=== PATIENT | male | born 1980 | race Caucasian/White ===

== ENCOUNTER 2020-02-01 14:33 | Outpatient (CLI) | payer OTHER, SELFPAY ==
--- NOTE | 2020-02-01 14:34 | ECG_ITS ---
Measurements Intervals [place] Rate: 82 P: 44 [place]: 154 QRS: -6 QRSD: 120 T: 32 QT: 375 QTc: 441 Interpretive Statements SINUS RHYTHM INTRAVENTRICULAR CONDUCTION DELAY BORDERLINE R WAVE PROGRESSION, ANTERIOR LEADS BASELINE ARTIFACT- I, II, III, AVR, AVL, AVF BORDERLINE ECG Electronically Signed On 02-01-2020 15:24:52 CDT by Allen Kwok D.O.
== END 2020-02-01 14:34 | disposition home or self-care (01) ==
LOC: ANHSURGERY 14:34
PROVIDERS: PCP Emergency Medicine; Visit Provider Urology
DX: N50.89 Other specified disorders of the male genital organs (principal); I10 Essential (primary) hypertension; R94.31 Abnormal electrocardiogram [ECG] [EKG]; I45.9 Conduction disorder, unspecified
CPT/HCPCS: 87086; 93005

== ENCOUNTER 2020-02-08 00:36 | Outpatient (CLI) | payer OTHER, SELFPAY ==
[2020-02-08 17:34] LABS: SARS-CoV-2 RNA PCR Negative
== END 2020-02-08 00:37 | disposition home or self-care (01) ==
LOC: ANHCOVIDDT 00:36
PROVIDERS: PCP Emergency Medicine; Visit Provider Urology
DX: Z01.812 Encounter for preprocedural laboratory examination (principal); Z11.59 Encounter for screening for other viral diseases
CPT/HCPCS: 87635; C9803; U0003

== ENCOUNTER 2020-02-10 02:27 | Day surgery (SDC) | payer OTHER, SELFPAY ==
[2020-01-31 09:33] VITALS: BMI 40.6
[2020-02-10] VITALS (12 sets, daily range): BP systolic 134–188; BP diastolic 11–110; PULSE 75–89; RESP 14–20; TEMP 36.8–37; O2SAT 77–97
[2020-02-10] MEDS: LACTATED RINGERS 1,000 ML 30 ML IV CONT ×2 (06:40→09:57)
--- NOTE | 2020-02-10 06:42 | P.PNAN_ITS ---
Anes - Initial Pre Proc Eval Procedure: Operation Date: 02/10/20 07:30 Proposed Procedures p Right Orchiectomy, Inguinal Approach - Irving Powers MD Date/Time: 02/10/20 06:42 Surgeon: Irving Powers MD Pre Op Diagnosis: Right Testicular Mass Patient Data Age: 39 Gender: M Height: 1.83 m Weight: 132.5 kg Allergies Allergy/AdvReac Type Severity Reaction Status Date / Time codeine AdvReac Mild Gastrointestinal Verified 02/10/20 06:32 Upset Home Medications Medication Instructions Recorded Confirmed Type allopurinol 200 mg PO DAILY 01/31/20 02/10/20 History bupropion HCl 150 mg PO DAILY 01/31/20 02/10/20 History indomethacin 50 mg PO DIRECTED PRN 01/31/20 01/31/20 History irbesartan 75 mg PO DAILY 01/31/20 02/10/20 History ECG: Date of Service: 02/01/20 Procedure(s): CA 12 lead EKG Accession Number(s): [id number] cc: ~ Measurements Intervals [place] Rate: 82 P: 44 [place]: 154 QRS: -6 QRSD: 120 T: 32 QT: 375 QTc: 441 Interpretive Statements SINUS RHYTHM INTRAVENTRICULAR CONDUCTION DELAY BORDERLINE R WAVE PROGRESSION, ANTERIOR LEADS BASELINE ARTIFACT- I, II, III, AVR, AVL, AVF BORDERLINE ECG Electronically Signed On 02-01-2020 15:24:52 CDT by Allen Kwok D.O. Dictated By: Allen Kwok DO 02/01/20 1519 Patient hx anesthesia problems: none Family hx anesthesia problems: none [facility] Past Medical History Medical History (Updated 02/10/20 @ 06:44 by Eze Arriola MD) Gout HTN (hypertension) Mass of right testicle Obesity MANNY (obstructive sleep apnea) Anes - Eval Final PreProcedure Day of Procedure 02/10/20 06:42 Patient weight: obese Heart: regular rate and rhythm Lungs: clear to auscultation and normal air movement Airway: Mallampati scale class II Neurological: alert and oriented Last oral intake: >/= 8 hours ASA classification: III Emergent: no Anesthetic plan: proceed Anesthesia type and monitoring: general LMA and ETT Informed Consent: The patient's anesthetic plan and its attendant risks and benefits were discussed with the patient/family/POA. Questions were solicited and answers provided to the satisfaction of the patient/family/POA.
--- NOTE | 2020-02-10 07:17 | PM.HPGS ---
History of Present Illness History of Present Illness Consent: Risks, benefits, and alternatives have been discussed and questions answered. Patient agrees to proceed with procedure. Chief complaint: Right Testicular Mass Narrative: David Villegas is a 39 year old male found to have a right testis mass. Presents for orchiectomy. Negative CT abd/pelvis CT and tumor markes Review of Systems Constitutional: Constitutional: Reports no additional constitutional complaints Eyes: Eyes: Reports no additional eye complaints Respiratory: Respiratory: Reports no additional respiratory complaints Musculoskeletal: Musculoskeletal: Reports no additional musculoskeletal complaints Integumentary/Breasts: Skin/Breast: Reports system reviewed and no additional complaints, except as docu Neurologic: Reports system reviewed and no additional complaints, except as documented Psychiatric: Psychiatric: Reports no additional psychiatric complaints [facility] Past Medical History Medical History (Updated 02/10/20 @ 06:44 by Eze Arriola MD) Gout HTN (hypertension) Mass of right testicle Obesity MANNY (obstructive sleep apnea) Meds Home Medications and Allergies Home Medications Medication Instructions Recorded Confirmed Type allopurinol 200 mg PO DAILY 01/31/20 02/10/20 History bupropion HCl 150 mg PO DAILY 01/31/20 02/10/20 History indomethacin 50 mg PO DIRECTED PRN 01/31/20 01/31/20 History irbesartan 75 mg PO DAILY 01/31/20 02/10/20 History Allergies Allergy/AdvReac Type Severity Reaction Status Date / Time codeine AdvReac Mild Gastrointestinal Verified 02/10/20 06:32 Upset Vital Signs Vital Signs - 24 hr 02/10/20 07:05 Temperature 36.8 C Pulse Rate 75 Respiratory Rate 16 Blood Pressure 142/83 H Pulse Oximetry 97 Exam Const: General: no acute distress Eyes: General: appearance normal, both eyes and all related structures Resp: Auscultation: clear to auscultation bilaterally Cardio: Rate: regular rate GI: GI Palp: Yes Soft to palpation : Other: right testis is smaller/firmer than left Skin: General skin exam: normal color Extrem: General: normal to inspection Assessment and Plan Assessment and plan (1) Mass of right testicle: Code(s): N50.89 - Other specified disorders of the male genital organs Status: Acute Assessment and Plan: Right testis atrophy with US showing mass - Plan right inguinal orchiectomy. Risks, benefits and alternatives discussed. - Pt agrees to proceed.
[2020-02-10] MEDS: ceFAZolin 3 GM/D5W 100 ML 100 ML IVPB (07:26)
[2020-02-10] MEDS: hydrALAZINE HCL 20 MG/ML VIAL 10 MG IV PUSH ×2 (09:41→10:04)
--- NOTE | 2020-02-10 13:02 | OP_ITS ---
DATE OF PROCEDURE: 02/10/2020 PREOPERATIVE DIAGNOSIS: Right testicular lesion. POSTOPERATIVE DIAGNOSIS: Right testicular lesion. PROCEDURE PERFORMED: Right inguinal orchiectomy. INDICATION FOR PROCEDURE: The patient is a pleasant gentleman who presented for individually workup. He was found to have a mass on scrotal ultrasonography. The patient reports atrophy of his right testicle. The risks, benefits, and alternatives were discussed with the patient. The patient has agreed to proceed with the right inguinal orchiectomy today. He has declined a testicular prosthesis. The patient has done preoperative sperm banking. The patient understands the risk of procedure including, not limited to infection, bleeding, pain, injury to surrounding structures, injury to the nerve endings, need for additional operations, potential benign etiology of lesion, and complication of anesthetic. The patient understands he may need additional therapies including chemotherapy, radiation therapy, or additional surgeries for treatment if cancer is found. The patient understands, has no questions, agrees to proceed. DESCRIPTION OF PROCEDURE: Informed consent was obtained. The patient was taken to the operating room, given preoperative IV antibiotics. He was induced with anesthesia. He was shaved, prepped and draped in normal sterile fashion. An 8 cm right lower abdominal incision was made approximately 2 cm above the external ring. We dissected down to identify the spermatic cord at the external ring. It was encompassed with a Barrie drain. We then delivered the right testicle atrophic without notable mass. We carefully dissected off the gubernacular attachments. We then opened the fascia taking care not to injure the ilioinguinal nerve. We then the spermatic cord away from surrounding structures up to the internal ring. Pean clamps were placed. We then tied the cord with multiple 0 Vicryl suture ligatures. It was hemostatic. We left the most distal suture long for further identification if needed in the future. The cord remnant was allowed to retract into the internal ring. We then irrigated copiously. We closed the fascia with interrupted 0 Vicryl sutures. Lucho's was then closed with a 2-0 Vicryl, deep dermal with 3-0 Vicryl, and skin with a 4-0 Monocryl subcuticular closure. The surgical glue was applied. Scrotal support was placed. The patient was awakened, taken to recovery room in stable condition. IV FLUIDS: Per Anesthesia. COMPLICATIONS: None. ESTIMATED BLOOD LOSS: Minimal. FOLLOWUP: The patient will follow up in the office in 2 to 3 weeks. I will call him with pathology, follow him on his return. D I MT: Jareth
== END 2020-02-10 12:10 | disposition home or self-care (01) ==
PROVIDERS: PCP Emergency Medicine; Visit Provider Urology
PROC: (CPT 54520; principal; 2020-02-10 07:30)
DX: C62.91 Malignant neoplasm of right testis, unspecified whether descended or undescended (principal); N50.0 Atrophy of testis; I10 Essential (primary) hypertension; G47.33 Obstructive sleep apnea (adult) (pediatric); E66.9 Obesity, unspecified; Z68.39 Body mass index [BMI] 39.0-39.9, adult; M10.9 Gout, unspecified; Z79.899 Other long term (current) drug therapy; Z88.5 Allergy status to narcotic agent
CPT/HCPCS: 54520; 88305; 88309; A9270; J0131; J0360; J0690; J1100; J1170; J2250; J2405; J2704; J3010; J7120

== ENCOUNTER 2020-07-20 08:35 | Outpatient (CLI) | payer OTHER, SELFPAY ==
--- NOTE | ~2020-07-20 | MR_ITS ---
EXAMINATION: MR MRCP wo/w con/w 3D wo ind DATE: 07/20/2020 10:13 INDICATION: Dilated common bile duct. TECHNIQUE: Magnetic resonance imaging (MRI) of the abdomen was performed without and with 20 mL Multi Emerald intravenous contrast. Sequences included coronal T2-weighted FS FSE, coronal T2-weighted FSE, a xial T1-weighted LAVA, coronal FS FIESTA, axial dual-echo T1-weighted SPGR, coronal lava-FLEX, sagitt al T2-weighted FSE, axial T2-weighted FSE, and axial DWI. Thick-slab T2-weighted FSE images were obta ined for magnetic resonance cholangiopancreatography (MRCP). Maximum intensity projection 3-D reconst ructions of the volumetric data were created by the technologist. Postcontrast sequences included cor onal LAVA-flex and time course of axial T1-weighted LAVA. COMPARISON: None. FINDINGS: ABDOMEN MRI: There is diffuse hepatic steatosis. There is a 15 mm mass with delayed hyperenhancement in right hepatic lobe without washout. The gallbladder, spleen, pancreas, and right adrenal gland are normal. There is a 13 mm mass in left adrenal gland containing microscopic fat, consistent with an a denoma. There are cysts in the kidneys measuring up to 5 mm on the right. There are no dilated loops of bowel. There are no pathologically enlarged lymph nodes. There is no free intraperitoneal fluid. ABDOMEN MRCP: The common duct is normal and measures 4 mm. No choledocholithiasis. IMPRESSION: 1. Normal biliary tree. 2. Diffuse hepatic steatosis. 3. 15 mm hyperenhancing liver mass, most likely a hemangioma. Reviewed, dictated and finalized at location A. [employer]
[2020-07-20 09:28] LABS: Estimated Glomerular Filt Rate > 60
== END 2020-07-20 08:36 | disposition home or self-care (01) ==
PROVIDERS: PCP Emergency Medicine; Visit Provider Emergency Medicine
DX: K83.8 Other specified diseases of biliary tract (principal); K76.0 Fatty (change of) liver, not elsewhere classified; R16.0 Hepatomegaly, not elsewhere classified; N28.1 Cyst of kidney, acquired
CPT/HCPCS: 74183; 76376; A9577

== ENCOUNTER 2020-07-28 16:45 | Emergency (ER) | payer OTHER, SELFPAY ==
[2020-07-28 16:51] VITALS: BP 142/89; PULSE 108; RESP 20; TEMP 36.3; O2SAT 99
--- NOTE | 2020-07-28 17:00 | ED.DENTAL ---
HPI - Dental/Oral General Chief complaint: Dental/Oral Stated complaint: jaw pain Source: patient and RN notes reviewed Limitations: no limitations History of Present Illness HPI Narrative: The patient, occasional drinker/chews tobacco, presents with left jaw pain. Patient states his dentist retired and he has 1/2-week history of left lower jaw pain that is mild, worse with palpation, radiates upward to his TMJ. No TMJ tenderness, fever, hoarseness, discharge, trismus, earache, discharge, visible/significant swelling. Patient advised to enroll and see dentist in follow-up Related Data Home Medications Medication Instructions Recorded Confirmed allopurinol 200 mg PO DAILY 01/31/20 02/10/20 bupropion HCl 150 mg PO DAILY 01/31/20 02/10/20 indomethacin 50 mg PO DIRECTED PRN 01/31/20 01/31/20 irbesartan 75 mg PO DAILY 01/31/20 02/10/20 clomiphene citrate mg 07/28/20 metformin 07/28/20 testosterone 07/28/20 Allergies Allergy/AdvReac Type Severity Reaction Status Date / Time codeine AdvReac Mild Gastrointestinal Verified 02/10/20 06:32 Upset Review of Systems Review of Systems: Narrative: The patient has been informed that they may have pre-hypertension or Hypertension based on a BP reading in the department. I recommend that the patient call the primary care provider listed on their discharge instructions or a physician of their choice this week to arrange follow up for further evaluation of possible pre-hypertension or Hypertension General/Constitutional: No weight loss,fever Eyes: N0: Redness,discharge Ears/Nose/Throat: No: Epistaxis,ear discharge Respiratory: Denies: Hemoptysis Gastrointestinal: No Vomiting, Bleeding-rectal Skin: No Lumps, eruption Neurologic: No Focal Weakness,Sz Hematologic: Denies: Petechiae/Purpura Psychiatric: No: Suicida ideationl All Other Systems: Reviewed and Negative [facility] Past Medical History Medical History (Updated 07/28/20 @ 17:46 by Brennen Ramos MD) Gout HTN (hypertension) Mass of right testicle Obesity MANNY (obstructive sleep apnea) Comments At time of signature, agree with nursing past medical, surgical, social and family history. There is no relevant family history pertinent to the presenting complaint Exam Narrative: Exam Narrative: General Appearance: Obese, Conjunctiva clear Nose: Normal nose Mouth/Throat: Normal appearing without left lower jaw swelling, Normal lips, MM moist, Uvula midline,scattered dental caries and fillings,, with rare fracture Neck: Supple, No adenopathy Respiratory: Airway patent, No respiratory distress Musculoskeletal: Full ROM, Non tender, Normal strength Spine/Back: Normal ROM Skin: Warm, Dry, Normal color Neurological: A&O x3, Normal affect Course Vital Signs Vital signs: Vital Signs Temperature 97.3 F L 07/28/20 16:51 Pulse Rate 108 H 07/28/20 16:51 Respiratory Rate 07/28/20 16:51 Blood Pressure 142/89 H 07/28/20 16:51 Pulse Oximetry 99 07/28/20 16:51 Temperature 97.3 F L 07/28/20 16:51 Pulse Rate 108 H 07/28/20 16:51 Respiratory Rate 07/28/20 16:51 Blood Pressure 142/89 H 07/28/20 16:51 Pulse Oximetry 99 07/28/20 16:51 Discharge Plan Discharge Clinical Impression: Abscess of jaw, left, Toothache Patient Disposition: Home, Self-Care Condition: Stable Instructions: Antibiotic Form, Dental Abscess (ED) Prescriptions: New amoxicillin-pot clavulanate [Augmentin] 500-125 mg tablet 1 tablet PO Q12H Qty: 14 RF: 0 Lidocaine Viscous 2 % solution 5 ml MUCOUS MEM QID PRN (Reason: pain) Qty: 100 RF: 0 indomethacin 50 mg capsule 50 mg PO BID Qty: 20 RF: 2 tramadol 50 mg tablet 50 mg PO TID PRN (Reason: pain) Qty: 15 RF: 1 No Action clomiphene citrate 50 mg tablet RF: 0 metformin RF: 0 testosterone RF: 0 bupropion HCl 150 mg tablet sustained-release 12 hr 150 mg PO DAILY RF:
== END 2020-07-28 17:19 | disposition home or self-care (01) ==
PROVIDERS: Emergency Provider Emergency Medicine; PCP Emergency Medicine
DX: M27.2 Inflammatory conditions of jaws (principal); K08.89 Other specified disorders of teeth and supporting structures; M10.9 Gout, unspecified; I10 Essential (primary) hypertension; G47.33 Obstructive sleep apnea (adult) (pediatric); E66.9 Obesity, unspecified; Z68.41 Body mass index [BMI] 40.0-44.9, adult
CPT/HCPCS: 99213; G0463

== ENCOUNTER 2020-08-12 11:17 | Emergency (ER) | payer OTHER, SELFPAY ==
--- NOTE | ~2020-08-12 | XR_ITS ---
EXAMINATION: XR knee RT min 4V EXAM DATE: 08/12/2020 11:59 INDICATION: right knee pain no injury . TECHNIQUE: Right knee lateral, frontal AP, frontal PA tunnel, sunrise projections. There is no prior study for comparison. FINDINGS: No evidence osteochondral defect or joint body in the right knee joint. No joint effusion. There is mild patellofemoral compartment primary osteoarthritis. There are no acute fractures or dis locations identified. There is no subcutaneous gas. The soft tissue is unremarkable. There are no radiopaque foreign bodies. IMPRESSION: Mild right patellofemoral compartment osteoarthritis. Reviewed, dictated and finalized at location A. 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
[2020-08-12 11:26] VITALS: BP 162/103; PULSE 94; RESP 16; TEMP 36.2; O2SAT 99
--- NOTE | 2020-08-12 11:37 | ED.EXTPRO ---
HPI - Extremity Problem General Chief complaint: Extremity Problem,Nontraumatic Stated complaint: Knee Pain Source: patient Mode of arrival: ambulatory Limitations: no limitations History of Present Illness HPI Narrative: Patient is a 40-year-old male who presents complaining of right knee pain x2 weeks. He reports initially had bilateral knee pain, however took indomethacin and left knee has no pain at this time. He reports history of gout. He denies injury on knees. He denies all other complaints. He reports taking ibuprofen last p.m. with moderate relief. MD Complaint: joint paint Related Data Home Medications Medication Instructions Recorded Confirmed allopurinol 200 mg PO DAILY 01/31/20 02/10/20 bupropion HCl 150 mg PO DAILY 01/31/20 02/10/20 indomethacin 50 mg PO DIRECTED PRN 01/31/20 01/31/20 irbesartan 75 mg PO DAILY 01/31/20 02/10/20 clomiphene citrate mg 07/28/20 metformin 07/28/20 testosterone 07/28/20 Allergies Allergy/AdvReac Type Severity Reaction Status Date / Time codeine AdvReac Mild Gastrointestinal Verified 02/10/20 06:32 Upset Review of Systems Review of Systems: Narrative: CONSTITUTIONAL: Denies fever, chills, or sweats. EYES: Denies visual changes, redness, or discharge. ENT: Denies rhinorrhea, congestion, sore throat, or otalgia. CARDIOVASCULAR: Denies chest pain, palpitations, or edema. RESPIRATORY: Denies cough or dyspnea. GASTROINTESTINAL: Denies abdominal pain, nausea, vomiting, or diarrhea. GENITOURINARY: Denies dysuria or hematuria. SKIN: Denies rash or itching. MUSCULOSKELETAL: Right knee pain NEUROLOGIC: Denies headache, numbness, dizziness, or weakness. PSYCHIATRIC: Denies anxiety or depression. [facility] Past Medical History Medical History (Updated 08/12/20 @ 12:18 by KAI Villavicencio) Gout HTN (hypertension) Mass of right testicle Obesity MANNY (obstructive sleep apnea) Surgical History Surgical History (Updated 08/12/20 @ 11:47 by KAI Villavicencio) No significant past surgical history Family History Family History (Updated 08/12/20 @ 11:48 by KAI Villavicencio) Other No significant family history Social History Social History (Updated 08/12/20 @ 11:48 by KAI Villavicencio) Smoking status: Never smoker Alcohol intake: current Alcohol use details: Occasional Substance use: never Living arrangements: with family Exam Narrative: Exam Narrative: GENERAL: Well-appearing, well-nourished, and in no acute distress. HEAD: Normocephalic, atraumatic. EYES: EOMI. No redness or drainage. ENT: Mucous membranes pink and moist. CHEST: No respiratory distress. Clear to auscultation. HEART: Regular rate and rhythm. No murmur appreciated. Normal peripheral pulses. EXTREMITIES: Right knee:normal range of motion, no edema, erythema or warmth. Good pedal pulse, capillary refill intact. SKIN: Warm, dry, no rash. NEURO: No focal deficits. Alert and oriented x3. Gait steady. PSYCH: Normal affect. No signs of depression or anxiety. Course Vital Signs Vital signs: Vital Signs Temperature 36.2 C L 08/12/20 11:26 Pulse Rate 94 08/12/20 11:26 Respiratory Rate 16 08/12/20 11:26 Blood Pressure 162/103 H 08/12/20 11:26 Pulse Oximetry 99 08/12/20 11:26 Temperature 36.2 C L 08/12/20 11:26 Pulse Rate 94 08/12/20 11:26 Respiratory Rate 16 08/12/20 11:26 Blood Pressure 162/103 H 08/12/20 11:26 Pulse Oximetry 99 08/12/20 11:26 Reviewed. Patient has been instructed to follow-up with his PCP regarding his blood pressure. History of medication noncompliance. MDM - Extremity (Nontraumatic) MDM Narrative Medical decision making narrative: Patient's right knee shows some mild osteoarthritis. Discussed pain relief with patient and follow-up with orthopedics as needed. Patient is stable for discharge home with outpatient follow-up as discussed. Differential Diagnosis Differential diagnosis: Likely gout a
== END 2020-08-12 12:21 | disposition home or self-care (01) ==
PROVIDERS: Emergency Provider Nurse Practitioner; PCP Emergency Medicine
DX: M17.11 Unilateral primary osteoarthritis, right knee (principal); M10.9 Gout, unspecified; I10 Essential (primary) hypertension; G47.33 Obstructive sleep apnea (adult) (pediatric); E66.9 Obesity, unspecified; Z68.41 Body mass index [BMI] 40.0-44.9, adult
CPT/HCPCS: 73564; 99213; G0463

== ENCOUNTER 2022-01-27 13:00 | Outpatient (RCR) | payer OTHER, SELFPAY | END 2022-02-03 11:05 | disposition home or self-care (01) | LOC: ANHDMC 13:00 | PROVIDERS: PCP Emergency Medicine; Referring Provider Emergency Medicine; Visit Provider Emergency Medicine | DX: E11.9 Type 2 diabetes mellitus without complications (principal); Z71.89 Other specified counseling | CPT/HCPCS: G0108 ==

== ENCOUNTER 2023-09-07 08:19 | Emergency (ER) | payer OTHER, SELFPAY ==
--- NOTE | ~2023-09-07 | XR_ITS ---
XR ankle RT min 3V 09/07/2023 08:41 Indication: Right ankle pain Procedure: 4 views right ankle Comparison: 04/09/2019 Findings: There is an oblique displaced distal fibular fracture. There is widening of the medial ankl e mortise. There is a prominent degenerative calcaneal enthesophyte at the plantar surface. There is moderate lateral soft tissue swelling. Impression: 1: Oblique displaced distal fibular fracture. Widening of the medial ankle mortise. Reviewed, dictated and finalized at location B. 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 Widening of the medial ankle mort ise.
[2023-09-07 08:19] VITALS: BP 176/109; PULSE 62; RESP 18; TEMP 36.4; O2SAT 98
[2023-09-07 08:24] VITALS: BP 176/109; PULSE 62; RESP 18; TEMP 36.4; O2SAT 98
--- NOTE | 2023-09-07 08:51 | ED.LOWEXIN ---
HPI - Extremity Injury (Lower) General Chief Complaint: Extremity Injury, Lower Stated Complaint: slipped on ice, right ankle pain Time Seen by Provider: 09/07/23 08:48 Source: patient Mode of arrival: ambulatory Limitations: no limitations History of Present Illness HPI Narrative: David is a 43-year-old male patient presenting to the ER today for complaints of right ankle pain after slipping on the ice at around 7:25 a.m. this morning. He reports pain is all way around the ankle. He is able to flex and extend the ankle with moderate pain. Related Data Home Medications Medication Instructions Recorded Confirmed allopurinol 100 mg tablet 200 mg PO DAILY 01/31/20 08/29/20 bupropion HCl 150 mg tablet,12 hr 150 mg PO DAILY 01/31/20 08/29/20 sustained-release indomethacin 50 mg capsule 50 mg PO DIRECTED PRN Pain 01/31/20 08/29/20 irbesartan 75 mg tablet 75 mg PO DAILY 01/31/20 08/29/20 clomiphene citrate 50 mg tablet mg 07/28/20 08/29/20 metformin 07/28/20 08/29/20 testosterone 07/28/20 08/29/20 Allergies Allergy/AdvReac Type Severity Reaction Status Date / Time iohexol Allergy Flushing Verified 09/07/23 08:23 [From contrast - CT, X-RAY] codeine AdvReac Mild Gastrointestinal Verified 09/07/23 08:23 Upset Review of Systems Review of Systems: Pertinent positives per HPI. Patient denies any fever, chills, rash, headache, visual changes, dizziness, cough, runny nose, sore throat, shortness of breath, chest pain, palpitations, nausea, vomiting, diarrhea, constipation, abdominal pain, or any urinary issues. [facility] Past Medical History Medical History Gout HTN (hypertension) Mass of right testicle Obesity MANNY (obstructive sleep apnea) Patella, chondromalacia Surgical History Surgical History History of orchiectomy Lt No significant past surgical history Family History Family History Other No significant family history Social History Social History Smoking status: Never smoker Alcohol intake: current Alcohol use details: Occasional Substance use: never Living arrangements: with family Comments At the time of my signature, I reviewed and agree with the nursing past medical, surgical, social, and family history. There is no relevant family history pertinent to the patient complaint. Exam Narrative: General: Well-developed, obese, in no apparent distress Head: Normocephalic, atraumatic. Cardio: Regular rate and rhythm, s1 and s2 normal, no murmur appreciated. Resp: Clear to auscultation bilaterally, no rhonchi, rales, wheezing or rubs. Musculoskeletal: No deformity, tender to palpation over the entire ankle joint, mild pain with flexion and extension against resistance, pain with valgus and varus testing, muscle strength strong and equal, peripheral pulse strong, moderate swelling, no cyanosis. Course Course Emergency Course: Portions of this record may have been created with voice recognition software. Vital Signs Vital signs: Vital Signs Temperature 36.4 C 09/07/23 08:19 Pulse Rate 62 09/07/23 08:19 Respiratory Rate 18 09/07/23 08:19 Blood Pressure 176/109 H 09/07/23 08:19 Pulse Oximetry 98 09/07/23 08:19 Temperature 36.4 C 09/07/23 08:24 Pulse Rate 62 09/07/23 08:24 Respiratory Rate 18 09/07/23 08:24 Blood Pressure 176/109 H 09/07/23 08:24 Pulse Oximetry 98 09/07/23 08:24 Vital signs reviewed MDM - Extremity Injury (Lower) MDM Narrative Medical decision making narrative: At the time of visit patient is resting comfortably on the exam table. Patient appears to be nontoxic. Diagnostics: X-ray right ankle shows a displaced oblique fibular fracture. Plan: Prescription for
[2023-09-07 10:43] VITALS: BP 166/85; PULSE 89; RESP 18; O2SAT 99
== END 2023-09-07 10:45 | disposition home or self-care (01) ==
PROVIDERS: Emergency Provider Nurse Practitioner Family; PCP Emergency Medicine
DX: S82.831A Other fracture of upper and lower end of right fibula, initial encounter for closed fracture (principal); I10 Essential (primary) hypertension; M10.9 Gout, unspecified; G47.33 Obstructive sleep apnea (adult) (pediatric); E66.9 Obesity, unspecified; Z68.41 Body mass index [BMI] 40.0-44.9, adult; Z90.79 Acquired absence of other genital organ(s); Z79.84 Long term (current) use of oral hypoglycemic drugs; W00.0XXA Fall on same level due to ice and snow, initial encounter
CPT/HCPCS: 29515; 73610; 99284

== ENCOUNTER 2023-09-15 00:27 | Day surgery (SDC) | payer OTHER, SELFPAY ==
[2023-09-14 09:24] VITALS: BMI 42.0
--- NOTE | 2023-09-14 09:28 | PC.NURSE ---
Report to the Outpatient Waiting Room, entrance under the green pavilion located off [facility], at time 1300 on date 09/15/23. Planned Procedure Time: 1500. Time changes happen often and if your time is changed the preop area will call you the afternoon before. - You and your visitor will be asked to self-screen and do not enter if you have any COVID symptoms. - A mask is optional within the hospital at this time. Patients may have clear liquids (water, carbonated beverages, clear teas, apple juice) until 3 hours prior to surgery with a maximum of 20 ounces. - No food from midnight until time of surgery Take the following medications with a SIP of water the morning of surgery: NEBIVOLOL, PAIN PILL IF NEEDED DO NOT STOP ANY OF YOUR OTHER PRESCRIPTION MEDICATIONS PRIOR TO SURGERY ?EXCEPT THE FOLLOWING Medications to discontinue per physician: N/A Date to take last dose: N/A Please no make-up, nail hebrew, hairspray, perfume, deodorant, or body powder the day of surgery. No jewelry (including any body piercings) or valuables the day of surgery, leave them at home. Please take a shower or bath the night before, or the morning of, surgery with an antibacterial soap. Wear comfortable, loose fitting clothing. - Jewelry must be removed prior to entering the operating room. Rings and piercings that are not removed may be cut off. - The hospital will not accept responsibility for valuables. - Please leave all valuables, including medications, at home the day of surgery. If you are going home after surgery, a licensed coach driver must drive you home. - NO public transportation without another adult if you receive anesthesia. - We recommend that an adult stay with you for 24 hours following discharge. - We also recommend that you do not drive, make important decision, drink alcoholic beverages, or take any drugs that were not prescribed by your health care provider for at least 24 hours after your discharge time. Follow any additional instructions given to you from your surgeon. If you or anyone in your household have experienced Covid symptoms in the past week, please notify your surgeon or the nurse liaison at the phone number below for possible testing. Telephone instructions given to PT - LOVE VILLASENOR and asked if any additional questions and then verbalized understanding. Patient advised to call surgeon office or pre surgery nurse liaison [phone] if any additional questions.
[2023-09-15] VITALS (8 sets, daily range): BP systolic 148–164; BP diastolic 88–114; PULSE 73–82; RESP 10–15; TEMP 36.6; O2SAT 92–99
--- NOTE | ~2023-09-15 | XR_ITS ---
EXAMINATION: XR surgery orthopedic DATE: 09/15/2023 15:15 DESIGN LEAD INDICATION: ORIF RT ANKLE . TECHNIQUE: 3 fluoroscopic images of the right ankle were obtained during right ankle ORIF performed b y the surgeon. I was not present in the operating room. Fluoroscopy exposure time was 3 minutes 37 se conds seconds. Air Kerma 10.557 mGy. DAP 0.2093 mGym2. COMPARISON: 09/07/2023 FINDINGS: Screw and plate fixation of a distal fibular fracture into near-anatomic alignment. IMPRESSION: Fluoroscopic documentation of right ankle ORIF. Please refer to the operative note for complete proce dural details . Reviewed, dictated and finalized at location K. GN LEAD IMPRESSION: Fluoroscopic documentation of right ankle ORIF. Please refer to the operative n ote for complete procedural details .
--- NOTE | 2023-09-15 07:20 | WPDHPUPDATE1 ---
History and Physical Update Update Date/Time: 09/15/23 07:20 History and Physical has been reviewed, including an updated exam of the patient. There are NO changes in the patient's condition. Risks, benefits, and alternatives have been discussed and questions answered. Patient agrees to proceed with procedure.
--- NOTE | 2023-09-15 12:36 | ECG_ITS ---
Measurements Intervals [place] Rate: 73 P: 45 TN: 194 QRS: -17 QRSD: 101 T: 31 QT: 384 QTc: 424 Interpretive Statements SINUS RHYTHM DELAYED PRECORDIAL R/S TRANSITION BASELINE ARTIFACT- I, II, AVR, AVL, AVF, V1-V2 BORDERLINE ECG COMPARED TO ECG 02/01/2020 15:19:23 NO SIGNIFICANT CHANGES Electronically Signed On 09-15-2023 13:37:29 MARKETING SERVICES COORDINATOR by Allen Kwok D.O.
[2023-09-15] MEDS: CELECOXIB 200 MG CAPSULE PO (13:15)
--- NOTE | 2023-09-15 13:23 | P.PNAN_ITS ---
Anes - Initial Pre Proc Eval Procedure: Operation Date: 09/15/23 15:00 Proposed Procedures p Open Reduction Internal Fixation Right Ankle Fracture - Pérez Burger MD Date/Time: 09/15/23 13:23 Surgeon: Pérez Burger MD Pre Op Diagnosis: Rt Ankle Fx Patient Data Age: 43 Gender: M Height: 1.83 m Weight: 140.6 kg Allergies Allergy/AdvReac Type Severity Reaction Status Date / Time iohexol Allergy Flushing Verified 09/15/23 13:07 [From contrast - CT, X-RAY] codeine AdvReac Mild Gastrointestinal Verified 09/15/23 13:07 Upset Home Medications Medication Instructions Recorded Confirmed Type allopurinol 100 mg tablet 200 mg PO DAILY 01/31/20 09/14/23 History naloxone 4 mg/actuation nasal 4 mg intranasal Q2M PRN opioid 09/07/23 09/14/23 Rx spray (Narcan) overdose #2 ea hydrocodone 5 mg-acetaminophen 325 1 tablet PO Q8H PRN pain 15 days 09/11/23 09/14/23 Rx mg tablet #30 tabs losartan 100 mg tablet 100 mg PO DAILY 09/14/23 09/14/23 History metformin 500 mg tablet 500 mg PO BID 09/14/23 09/14/23 History nebivolol 10 mg tablet 10 mg PO DAILY 09/14/23 09/14/23 History semaglutide 0.25 mg or 0.5 mg (2 0.5 mg subcut WEEKLY 09/14/23 09/14/23 History mg/3 mL) subcutaneous pen injector (Ozempic) Patient hx anesthesia problems: none Family hx anesthesia problems: none Results Review: All pre-operative results and documents have been reviewed as part of the pre- operative evaluation. PMFSH Past Medical History Medical History Gout HTN (hypertension) Mass of right testicle Obesity MANNY (obstructive sleep apnea) Patella, chondromalacia Surgical History Surgical History History of orchiectomy Lt No significant past surgical history Family History Family History Other No significant family history Social History Social History Smoking status: Never smoker Smokeless tobacco user: chewing tobacco Alcohol intake: current Alcohol use details: ONCE A MONTH Substance use: current Substance use type: marijuana Living arrangements: with family Spiritual care concerns: No Anes - Eval Final PreProcedure Day of Procedure 09/15/23 13:23 Patient weight: morbidly obese Heart: regular rate and rhythm Lungs: decreased breath sounds Airway: Mallampati scale class II Neurological: alert and oriented Last oral intake: >/= 8 hours ASA classification: III Emergent: no Anesthetic plan: proceed Anesthesia type and monitoring: general LMA and standard monitoring Results Review: All pre-operative results and documents have been reviewed as part of the pre- operative evaluation. Informed Consent: The patient's anesthetic plan and its attendant risks and benefits were discussed with the patient/family/POA. Questions were solicited and answers provided to the satisfaction of the patient/family/POA.
[2023-09-15 13:57] LABS: Anion Gap 10 mmol/L (8-16); Blood Urea Nitrogen 16 mg/dL (9-20); Calcium 9.5 mg/dL (8.4-10.2); Carbon Dioxide 26 mmol/L (22-30); Chloride 102 mmol/L (98-107); Estimated CRCL calculation 154 ml/min; Estimated Glomerular Filt Rate > 60; Glucose 120 mg/dL (65-110); Potassium 4.2 mmol/L (3.4-5.0); Sodium 138 mmol/L (137-145)
[2023-09-15] MEDS: LACTATED RINGERS 1,000 ML 30 ML IV CONT ×2 (14:00→16:41)
[2023-09-15] MEDS: ACETAMINOPHEN 500 MG TABLET 1000 MG PO (14:09)
[2023-09-15] MEDS: ceFAZolin 3 GM/D5W 100 ML 100 ML IVPB (15:09)
[2023-09-15] MEDS: BUPivacaine HCL 0.5% 10 ML AMP INFILTRATE (16:21)
--- NOTE | 2023-09-15 16:46 | W.PM.PROC2 ---
Procedure Note - Detailed Date of Procedure 09/15/23 Pre-op Diagnosis Rt Lateral Malleolus Fx Post-op Diagnosis Same Procedure Performed ORIF RIGHT LATERAL MALLEOLUS FRACTURE Surgeon Pérez Burger MD Anesthesia General Description of Procedure THE PATIENT WAS TAKEN TO THE OR AND PLACED UNDER GENERAL ANESTHESIA. THE RIGHT LOWER EXTREMITY WAS PREPPED AND DRAPED IN THE USUAL STERILE FASHION. THE SKIN AROUND THE ANKLE HAD NO SIGNIFICANT LESIONS OR BLISTERING. THE TOURNIQUET WAS INFLATED. AN INCISION WAS MADE OVER THE LATERAL ASPECT OF THE DISTAL LEG AND ANKLE DOWN THROUGH THE SUBCUTANEOUS TISSUES. THE SUPERFICIAL PERONEAL NERVE WAS IDENTIFIED AND PRESERVED. DISSECTION CONTINUED UNTIL THE FRACTURE WAS VISUALIZED. THE FRACTURED WAS REDUCED TO ANATOMIC POSITION AND A LAG SCREW WAS PLACED TO MAINTAIN REDUCTION. NEXT A 4 HOLE ARTHREX PLATE WAS PLACED BRIDGING THE FRACTURE FRACTURE FRAGMENTS AND ATTACHED WITH MULTIPLE SCREWS MAINTAINING THE FRACTURE IN ANATOMIC POSITION. THE ANKLE WAS VISUALIZED UNDER FLUOROSCOPY AND FOUND TO BE STABLE WITH HARDWARE IN GOOD POSITION AND FRACTURE REDUCED. THE SYNDESMOSIS WAS REDUCED AND STRESS VIEWS SHOWED NO INSTABILITY OR ABNORMAL WIDENING OF THE SYNDESMOSIS. THE WOUND WAS WASHED WITH STERILE WATER. THE DEEP LAYERS WERE APPROXIMATED WITH 2-0 VICRYL, THE SUBCUTANEOUS LAYER WAS APPROXIMATED WITH 3-0 VICRYL AND THE SKIN WITH YOU. THE WOUND WAS WASHED AND PLACED IN A STERILE DRESSING THEN A PLASTER SPLINT WAS APPLIED. THE PATIENT WAS EXTUBATED AND SENT TO THE RECOVERY ROOM. Estimated Blood Loss 20 Complications No immediate complications Condition Stable Disposition PACU
[2023-09-15 17:09] LABS: Glucose Point of Care 141 mg/dl (65-105)
[2023-09-15] MEDS: fentaNYL CITRATE INJ (*CRX) 100 MCG/2 ML VIAL 25 MCG IV PUSH ×3 (17:24→17:46)
--- NOTE | 2023-09-15 17:47 | SUR.PHASEI ---
1745-dr. Deluna aware of PACU B/P range-states B/P</=180/110 acceptable-if > than will treat.
[2023-09-15] MEDS: oxyCODONE HCL (*CRX) 5 MG TAB IR PO (18:23)
== END 2023-09-15 19:03 | disposition home or self-care (01) ==
PROVIDERS: Anesthesiology; PCP Emergency Medicine; Visit Provider Orthopaedic Surgery
PROC: (CPT 27792; principal; 2023-09-15 15:00)
DX: S82.61XA Displaced fracture of lateral malleolus of right fibula, initial encounter for closed fracture (principal); W00.0XXA Fall on same level due to ice and snow, initial encounter; I10 Essential (primary) hypertension; G47.33 Obstructive sleep apnea (adult) (pediatric); E66.9 Obesity, unspecified; Z68.41 Body mass index [BMI] 40.0-44.9, adult
CPT/HCPCS: 27792; 36415; 80048; 82948; 93005; 99199; A9270; C1713; J0690; J1100; J1170; J2250; J2405; J2704; J3010; J7120